=== PATIENT | female | born 1960 | race Caucasian/White ===

== ENCOUNTER 2019-07-15 11:00 | Outpatient (RCR) | payer BC | END 2019-07-18 | LOC: PT 11:00 | PROVIDERS: ATTEND Family Medicine Sports Medicine | DX: M51.37 Other intervertebral disc degeneration, lumbosacral region (principal); M46.1 Sacroiliitis, not elsewhere classified; M54.5 Low back pain ==

== ENCOUNTER 2019-07-26 09:54 | Outpatient (RCR) | payer BC | END 2019-08-18 | LOC: PT 09:54 | PROVIDERS: ATTEND Family Medicine Sports Medicine | DX: M51.37 Other intervertebral disc degeneration, lumbosacral region (principal); M46.1 Sacroiliitis, not elsewhere classified; M54.5 Low back pain ==